=== PATIENT | female | born 1945 | race Caucasian/White ===

== ENCOUNTER → 2018-04-24 09:03 | Outpatient (CLI) | payer MEDICARE, BC ==
[2015-10-13 12:41] VITALS: BMI 26.8
[~2018-04-24 09:03] MED LIST: ACETAMINOPHEN500 M1 PO; ASCORBIC ACID500 MG PO; ATIVAN0.5 MG PO; BACLOFEN20 M1 PO; BENADRYL25 MG PO; CALCIUM 600+D T1 TA1 PO; CARAFATE1 G PO; COZAAR100 MG PO; CYMBALTA60 MG PO; DEPLIN; ED-SPAZ0.125 MG PO; ELIQUIS2.5 MG PO; ESTRACE 0.5 MG0.5 MG PO; GLUCOPHAGE1000 MG PO; GLUCOPHAGE500 MG PO; HYDROCODONE-APA1 TAB PO; HYOSCYAMINE; LIPITOR20 MG PO; MELATONIN 3 MG1 TAB PO; NEURONTIN 300300 MG PO; NEURONTIN 400400 MG PO; OMEGA-3100 MG PO; PERCOCET 10/3251 TA1; PERCOCET 10/3251 TA1 PO; PRILOSEC20 MG PO; PROBIOTIC1 EAC1 PO; REQUIP0.5 MG PO; TRICOR145 MG PO; VITAMIN B COMPL1 TA1 PO; VITAMIN D31000 UNIT PO; ZANAFLEX4 MG PO; ZESTORETIC 20/11 TAB PO; ZESTRIL10 MG PO; ZOVIRAX800 MG PO; ZYBAN150 MG PO
--- NOTE | 2018-04-27 12:17 | EC ---
PATIENT:CARLOS ENRIQUE FAJARDO DATE OF SERVICE: 04/24/18 SEX: F MEDICAL RECORD: [id number] DATE OF : [birth year] LOCATION:[facility] AGE OF PATIENT: 72 ADMISSION DATE: 04/24/18 REFERRING PHYSICIAN: INTERPRETING PHYSICIAN: TATA FRANCIS MD ECHOCARDIOGRAM REPORT ECHO CHARGES 4 ECHO COMPLETE Date: 04/24/18 CLINICAL DIAGNOSIS: MR/TR/AI H/O CAD/HTN ECHOCARDIOGRAPHIC MEASUREMENTS (adult normal given) AC root (d.<3.7cm) 3.1 cm LV Septum d (<1.2 cm> 1.3 cm Valve Excursion 2.2 cm LV Septum (systole) 1.5 cm Left Atria (s.<4.0cm> 2.8 cm LVPW d(<1.2cm) 1.2 cm RV (d.<2.3cm) 2.5 cm LVPW (sytole) 1.8 cm LV diastole(<5.6CM) 4.5 cm MV E-F(>70mm/sec) cm LV systole 2.5 cm LVOT Diameter 2.1 cm MV exc.(>10mm) cm Est.ejection fraction (50-75%) % DOPPLER: LVIT cm/sec A 71.0 cm/sec E 51.0 cm/sec LA cm/sec RVSP 34.0 mmHg LVOT 105 cm/sec AOP1/2T m/s Asc. Ao 128 cm/sec RVOT 74.0 cm/sec RA cm/sec PA 83.0 cm/sec AV Gradient Peak 6.5 mmHg AV Mean 3.3 mmHg AV Area 3.4 cm MV Gradient Peak 2.9 mmHg MV Mean 0.98 mmHg MV Area cm COMMENTS: OP - HC Explosives Detonator: 1 LORRAINE PIA Administration Professional: 3 Dr. Tran TAPE# PACS Pericardial Effusion N DATE OF SERVICE: 04/24/2018 Adequate 2-D echocardiogram, color flow and spectral Doppler, and M-mode. Borderline LVH. LV internal dimensions are normal. Wall motion is normal. EF is greater than or equal to 55%. Aortic valve is tricuspid. No evidence of stenosis by Doppler interrogation. Left atrium is normal at 3.8 cm. Mitral valve shows no prolapse. Mild MR. Right-sided chambers are grossly normal. Mild TR. ECHOCARDIOGRAM REPORT [id number] CARLOS ENRIQUE FAJARDO TRANSINT:[id number] Voice Confirmation ID: [id number] DOCUMENT ID: [id number] TATA FRANCIS MD at 1217 CC: [id number] DICTATION DATE: 04/24/18 1517 [place] FALLER: 04/24/18 1642 DEP CLI 04/24/18 [place] [id number] [place] [id number]
== END | disposition home or self-care (01) ==
LOC: D.HCCARDIO 09:03
PROVIDERS: ATTEND Internal Medicine Interventional Cardiology
DX: I10 Essential (primary) hypertension (principal)